=== PATIENT | female | born 1960 | race Caucasian/White ===

== ENCOUNTER 2023-02-03 15:53 | Observation (INO) | payer OTHER, SELFPAY ==
[2023-02-03] VITALS (25 sets, daily range): BP systolic 137–176; BP diastolic 68–72; PULSE 49–80; RESP 10–61; TEMP 36.7–36.9; O2SAT 92–99; BMI 35.4; BMI 36.3
--- NOTE | 2023-02-03 15:56 | ECG_ITS ---
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
--- NOTE | 2023-02-03 15:56 | CT_ITS ---
The [address] [address] Patient Name: KATHERINE GUIDRY MRN: [id number] date: 1960 Sex: F Assigned Patient Location: ER Current Patient Location: ER Accession/Order Number: [id number] Exam Date: 02/03/2023 15:55 Report Date: 02/03/2023 16:18 At the request of: KARY HAMILTON Procedure: CT stroke head/brain wo con EXAM: CT stroke head/brain wo con HISTORY: ams COMPARISON: None. TECHNIQUE: Axial CT scans through the head were obtained without IV contrast administration. Dose reduction techniques were achieved by using: automated exposure control and/or adjustment of mA and /or kV according to patient size and/or use of iterative reconstruction technique. FINDINGS: There is no evidence of acute intracranial hemorrhage or abnormal extra-axial fluid collection. No mass effect or midline shift is seen. There is no evidence of large acute territorial infarction. There is no hydrocephalus. To the limit of CT, the posterior fossa appears unremarkable. No definite acute fracture is identified. Soft tissues are unremarkable. The visualized orbits show no abnormal mass. The visualized paranasal sinuses show no air-fluid level. Mastoid air cells are clear. CT/CT stroke head/brain wo con IMPRESSION: No CT evidence of acute intracranial abnormality. If there is sufficient clinical concern for acute brain parenchymal pathology, consider MRI for further evaluation. Electronically authenticated by: GARY UNLU Date: 02/03/2023 16:18
[2023-02-03 16:15] LABS: Basophils Percent Auto 0.2 % (0.2-2.0); Eosinophils Absolute Auto 0.2 10^3/uL (0.0-0.7); Eosinophils Percent Auto 2.4 % (0.9-7.0); Hemoglobin 13.8 g/dL (12.0-16.0); Immature Granulocytes Abs Auto 0.04 10^3/uL (0.00-0.03); Immature Granulocytes Pct Auto 0.5 % (0.0-0.5); Lymphocytes Absolute Auto 3.2 10^3/uL (1.2-3.8); Mean Corpuscular HGB Conc 32.9 g/dL (29.9-35.2); Mean Corpuscular Hemoglobin 30.9 pg (26.7-34.0); Mean Platelet Volume 9.2 fL (9.5-13.5); Monocytes Absolute Auto 0.7 10^3/uL (0.3-0.8); Monocytes Percent Auto 8.1 % (1.7-12.0); Neutrophils Absolute Auto 3.9 10^3/uL (1.4-6.5); Neutrophils Percent Auto 48.8 % (43.0-75.0); Platelet Count 198 10^3/uL (150-450); Red Blood Count 4.47 10^6/uL (4.20-5.40); Red Cell Distribution Width 14.3 % (11.0-15.0)
--- NOTE | 2023-02-03 16:18 | XR_ITS ---
The [address] [address] Patient Name: KATHERINE GUIDRY MRN: [id number] date: 1960 Sex: F Assigned Patient Location: ER Current Patient Location: ER Accession/Order Number: [id number] Exam Date: 02/03/2023 16:50 Report Date: 02/03/2023 17:05 At the request of: KARY HAMILTON Procedure: XR chest 1V EXAMINATION: XR chest 1V HISTORY: Shortness of breath COMPARISON: Portable chest 09/19/2021 TECHNIQUE: Portable chest FINDINGS: The lung parenchyma is free of consolidation or infiltrate. No pneumothorax or pleural effusion. The cardiac, mediastinal and hilar contours are normal. The visualized osseous structures exhibit no gross abnormality. XR/XR chest 1V IMPRESSION: No acute cardiopulmonary abnormality. Electronically authenticated by: CINDY ORTEGA Date: 02/03/2023 17:05
--- NOTE | 2023-02-03 16:23 | ED_ITS ---
HPI - General Adult General Chief complaint: Altered Mental Status Stated complaint: Extreme Weakness/CVA Time Seen by Provider: 02/03/23 15:56 Source: patient Mode of arrival: ambulance History of Present Illness HPI narrative: The patient is coming to us by the EMS after she had an episode of being unconscious for few seconds according to the family members at the call the EMS right away but by the time the EMS arrived the patient is back to being awake and her pulse ox was in the upper 70s, the patient admits of being sick for the last few days having cough difficulty breathing and wheezing. Also productive cough with no chest pain there is some chest tightness no nausea no vomiting no abdominal pain She have her sister also with similar symptoms Related Data Home Medications Medication Instructions Recorded Confirmed amlodipine 5 mg tablet 10 mg PO DAILY 02/03/23 02/03/23 atorvastatin 20 mg tablet 20 mg PO DAILY 02/03/23 02/03/23 potassium chloride 20 mEq 20 meq PO DAILY 02/03/23 02/03/23 tablet,extended release(part/cryst) sertraline 50 mg tablet 50 mg PO DAILY 02/03/23 02/03/23 Allergies Allergy/AdvReac Type Severity Reaction Status Date / Time No Known Drug Allergies Allergy Verified 02/03/23 16:01 Review of Systems ROS Status of ROS 10 or more systems reviewed and unremarkable except as noted in history and below Exam Narrative Exam Narrative: Nurses notes and vital signs reviewed and patient is not hypoxic. General: Well-appearing and in no apparent distress. Skin: Warm, dry, no pallor noted. No rash. Head: Normocephalic, atraumatic. Neck: Supple, non-tender. Eye: Pupils are equal, round and EOMI. No scleral icterus. Ears, Nose, Mouth, and Throat: TM are clear, no nasal mucosal hypertrophy. Oral mucosa is moist, no posterior oropharynx erythema, uvula is mid-line Cardiovascular: Regular Rate and Rhythm without murmur, gallop or rub. Respiratory: No accessory muscle use or respiratory distress. Lungs are the patient have bilateral expiratory lung wheezes Chest Wall: no tenderness Back: No midline thoracic or lumbar vertebral tenderness. No CVA tenderness Musculoskeletal: normal ROM, no calf or popliteal tenderness, no lower extremity edema/swelling GI: Abdomen is soft, non-distended. Normal bowel sounds. No masses appreciated. No tenderness to palpation. No rebound, guarding, or rigidity noted. Neurological: A&O x4. No cranial nerve dysfunction observed. No truncal ataxia. Moves all extremities. Sensation intact. Psychiatric: Cooperative and interactive. Normal mood and affect. Constitutional Vital Signs, click to edit/add: Last Vital Signs Temp 98.1 F 02/03/23 16:01 Pulse 49 L 02/03/23 16:32 Resp 12 02/03/23 16:32 BP 176/68 H 02/03/23 16:01 Pulse Ox 97 02/03/23 16:32 O2 Del Method Nasal Cannula 02/03/23 16:32 O2 Flow Rate 2 02/03/23 16:32 Course Vital Signs Vital signs: Vital Signs Temperature 98.1 F 02/03/23 16:01 Pulse Rate 64 02/03/23 16:01 Respiratory Rate 18 02/03/23 16:01 Blood Pressure 176/68 H 02/03/23 16:01 Pulse Oximetry 98 02/03/23 16:01 Oxygen Delivery Method Nasal Cannula 02/03/23 16:01 Oxygen Delivery Flow Rate 2 02/03/23 16:01 Temperature 98.1 F 02/03/23 16:01 Pulse Rate 49 L 02/03/23 16:32 Respiratory Rate 12 02/03/23 16:32 Blood Pressure 176/68 H 02/03/23 16:01 Pulse Oximetry 97 02/03/23 16:32 Oxygen Delivery Method Nasal Cannula 02/03/23 16:32 Oxygen Delivery Flow Rate 2 02/03/23 16:32 Medical Decision Making [facility] Narrative Medical decision making narrative: The patient EKG showing sinus rhythm with a heart rate of [address] elevation or depression The patient CT head showed no acute pathology her ABGs confirm the diagnosis of COPD exacerbation with CO2 retention She is not in any respiratory distress at the moment she was provided with breathing treatment as well as Solu-Medrol The patient chest x-ray showed no acute pathology her CBC as well was within normal chemistry showing elevated bicarb which could be secondary to CO2 retention Right now the patient will be admitted for further management of her COPD exacerbation The patient mentioned that she smokes a pack of cigarette daily although initially she mentioned that she quit smoking The patient was now be admitted for further evaluation for COPD exacerbation and further observation as well The patient case was discussed with Dr. Lozano and he will admit the patient The patient daughter present at the bedside she mentioned that the patient was sitting and they both were sick for the last few days and she noted that her face turned mckeon with the patient became not responding to her when she is talking to her for few seconds and she is not sure but she might have had some facial drooping although she thinks it was the in both side a certain point Lab Data Labs: Lab Results 02/03/23 02/03/23 Range/Units 16:05 16:39 WBC 8.0 (4.0-11.0) 10^3/uL RBC 4.47 (4.20-5.40) 10^6/uL Hgb 13.8 (12.0-16.0) g/dL Hct 42.0 (36.0-48.0) % MCV 94.0 (81.0-99.0) fL MCH 30.9 (26.7-34.0) pg MCHC 32.9 (29.9-35.2) g/dL RDW 14.3 (11.0-15.0) % Plt Count 198 (150-450) 10^3/uL MPV 9.2 L (9.5-13.5) fL Neut % (Auto) 48.8 (43.0-75.0) % Lymph % (Auto) 40.0 (20.5-60.0) % Graves % (Auto) 8.1 (1.7-12.0) % Eos % (Auto) 2.4 (0.9-7.0) % Baso % (Auto) 0.2 (0.2-2.0) % Neut # (Auto) 3.9 (1.4-6.5) 10^3/uL Lymph # (Auto) 3.2 (1.2-3.8) 10^3/uL Graves # (Auto) 0.7 (0.3-0.8) 10^3/uL Eos # (Auto) 0.2 (0.0-0.7) 10^3/uL Baso # (Auto) 0.0 (0.0-0.1) 10^3/uL Abs Immat Gran (auto) 0.04 H (0.00-0.03) 10^3/uL Imm/Tot Granulo (auto) 0.5 (0.0-0.5) % PT 9.6 (9.0-11.6) sec INR <0.93 Puncture Site R radial ABG pH 7.331 L (7.350-7.450) ABG pCO2 59.6 H* (35.0-45.0) mmHg ABG pO2 64.8 L (80.0-100.0) mmHg ABG HCO3 31.5 H (22.0-26.0) mmol/L ABG O2 Saturation 94.0 % ABG Base Excess 5.5 H (-2.0-2.0) mmol/L Edgar Test Positive (POSITIVE) O2 Liters/Min 2 Sodium 141 (136-145) mmol/L Potassium 3.9 (3.5-5.1) mmol/L Chloride 103 (98-107) mmol/L Carbon Dioxide 33.2 H (21.0-32.0) mmol/L Anion Gap 8.7 BUN 10.0 (7.0-18.0) mg/dL Creatinine 0.75 (0.55-1.02) mg/dL Est GFR ( Amer) >60 (>=60) Est GFR (Non-Af Amer) >60 (>=60) BUN/Creatinine Ratio 13.3 Glucose 115 H (74-106) mg/dL Calcium 8.5 (8.5-10.1) mg/dL Total Bilirubin 0.4 (0.2-1.0) mg/dL AST 16 (15-37) U/L ALT 16 (14-59) U/L Alkaline Phosphatase 96 (46-116) U/L Troponin I High Sens 10.5 (4.0-51.3) pg/mL Total Protein 7.8 (6.4-8.2) g/dL Albumin 3.8 (3.4-5.0) g/dL Globulin 4.0 g/dL Albumin/Globulin Ratio 0.9 Ethanol Quant <3 mg/dL SARS-CoV-2 (PCR) Negative (NEGATIVE) Discharge Plan Discharge Chief Complaint: Altered Mental Status Clinical Impression: Respiratory failure with hypercapnia, Syncope, Acute exacerbation of chronic obstructive pulmonary disease Patient Disposition: Admitted As Inpatient Time of Disposition Decision: 17:24 Condition: Good
[2023-02-03 16:26] LABS: Ethanol <3 mg/dL
[2023-02-03] MEDS: IPRATROPIUM/ALBUTEROL SULFATE 3 ML AMPUL.NEB IH ×3 (16:31→23:20)
[2023-02-03 16:33] LABS: Alanine Aminotransferase 16 U/L (14-59); Albumin Globulin Ratio 0.9; Albumin Level 3.8 g/dL (3.4-5.0); Alkaline Phosphatase 96 U/L (46-116); Anion Gap 8.7; Aspartate Amino Transferase 16 U/L (15-37); BUN Creatinine Ratio 13.3; Bilirubin Total 0.4 mg/dL (0.2-1.0); Calcium 8.5 mg/dL (8.5-10.1); Carbon Dioxide 33.2 mmol/L (21.0-32.0); Chloride 103 mmol/L (98-107); Estimated GFR (African America >60 (>=60); Estimated GFR (Non-African Ame >60 (>=60); Glucose 115 mg/dL (74-106); Potassium 3.9 mmol/L (3.5-5.1); Prothrombin Time 9.6 sec (9.0-11.6); Sodium 141 mmol/L (136-145); Total Protein 7.8 g/dL (6.4-8.2); Troponin I High Sensitivity 10.5 pg/mL (4.0-51.3)
[2023-02-03 16:34] LABS: INR <0.93
[2023-02-03 16:42] LABS: SARS-CoV-2 Ag NEGATIVE (NEGATIVE)
[2023-02-03 16:48] LABS: pH ABG 7.331 (7.350-7.450)
[2023-02-03 16:49] LABS: ABG PCO2 59.6 mmHg (35.0-45.0); Allen Test POSITIVE (POSITIVE); Base Excess ABG 5.5 mmol/L (-2.0-2.0); HCO3 ABG 31.5 mmol/L (22.0-26.0); Liters per Minute 2; O2 Mode NC; PO2 ABG 64.8 mmHg (80.0-100.0); Puncture Site R RADIAL
[2023-02-03] MEDS: METHYLPREDNISOLONE SOD SUCC PF 125 MG/2 ML VIAL IVP (16:50)
--- NOTE | 2023-02-03 17:19 | CT_ITS ---
[address] [address] Patient Name: KATHERINE GUIDRY MRN: [id number] date: 1960 Sex: F Assigned Patient Location: MS Current Patient Location: Accession/Order Number: [id number] Exam Date: 02/03/2023 17:48 Report Date: 02/03/2023 19:29 At the request of: SHAIKH MC Procedure: CT angio chest EXAMINATION: CT angio chest, 02/03/2023 5:48 PM EDT HISTORY: sob COMPARISON: None. TECHNIQUE: CT angiography of the chest was performed with IV contrast. MIP (maximum intensity projection) images or 3D post processing was performed. CT dose reduction technique was used, including Automated Exposure Control. FINDINGS: VASCULATURE/PULMONARY ARTERIES: There is satisfactory opacification of the pulmonary arterial system. There is no evidence of pulmonary embolism. The main pulmonary artery is normal in diameter. The aorta and great vessels appear normal. HEART/PERICARDIUM: Mild cardiomegaly. Stent within the circumflex coronary artery. MEDIASTINAL/HILAR LYMPH NODES: Mild mediastinal lymphadenopathy including for example a right paratracheal lymph node measuring 1.2 x 1.1 cm. There is also an enlarged right hilar lymph node measuring 1.7 cm. ESOPHAGUS: Normal as visualized. PLEURAL CAVITY: No pleural effusion or pneumothorax. LUNGS/AIRWAYS: Mild central bronchial wall thickening suggestive of bronchitis. There is mild diffuse mosaic attenuation throughout the lungs. The lungs are otherwise clear. CHEST WALL/AXILLA/LOWER NECK: Normal. VISUALIZED UPPER ABDOMEN: Mild splenomegaly with the spleen measuring 15 cm AP. BONES: Mild degenerative changes of thoracic spine. No acute osseous abnormality. CT/CT angio chest IMPRESSION: 1. No evidence of pulmonary embolism. 2. Mild bronchial wall thickening suggestive of bronchitis and mosaic attenuation suggestive of small airways disease. 3. Mild mediastinal and right hilar lymphadenopathy which may be reactive in nature however recommend a followup chest CT with contrast in 3 months. 4. Mild cardiomegaly. 5. Splenomegaly. Electronically authenticated by: JOHANN RICHARDS Date: 02/03/2023 19:29
[2023-02-03] MEDS: ENOXAPARIN SODIUM 40 MG/0.4 ML SYRINGE SUBQ (19:22)
[2023-02-03] MEDS: AZITHROMYCIN 250 MG TABLET 500 MG PO (19:22)
[2023-02-03] MEDS: NICOTINE 21 MG PATCH TD (19:22)
[2023-02-03] MEDS: AMLODIPINE 10 MG TABLET 1 EACH PO (21:01)
[2023-02-03] MEDS: POTASSIUM CHLORIDE 20 MEQ TABLET 20 EACH PO (21:02)
[2023-02-03] MEDS: SERTRALINE HCL 100 MG TABLET PO (21:03)
[2023-02-03] MEDS: ATORVASTATIN CALCIUM 20 MG TABLET PO (21:03)
[2023-02-03 22:03] LABS: Bilirubin Urine NEGATIVE (NEGATIVE); Blood Urine NEGATIVE (NEGATIVE); Clarity Urine CLEAR (CLEAR); Color Urine YELLOW (YELLOW); Glucose Urine UA 250 mg/dL (NEGATIVE); Ketones Urine NEGATIVE (NEGATIVE); Leukocyte Esterase Urine NEGATIVE (NEGATIVE); Nitrite Urine NEGATIVE (NEGATIVE); Protein Urine NEGATIVE (NEG/TRACE); Urine Microscopic Indicated NO; Urobilinogen Urine 0.2 EU/dL (0.2-1.0)
[2023-02-04] VITALS (10 sets, daily range): BP systolic 133; BP diastolic 67; PULSE 74–101; RESP 16–20; TEMP 36.8; O2SAT 89–96; BMI 36.3
[2023-02-04] MEDS: IPRATROPIUM/ALBUTEROL SULFATE 3 ML AMPUL.NEB IH ×3 (03:40→11:43)
[2023-02-04 05:03] LABS: Basophils Percent Auto 0.2 % (0.2-2.0); Hematocrit 42.8 % (36.0-48.0); Hemoglobin 13.5 g/dL (12.0-16.0); Immature Granulocytes Abs Auto 0.05 10^3/uL (0.00-0.03); Immature Granulocytes Pct Auto 0.9 % (0.0-0.5); Lymphocytes Absolute Auto 0.8 10^3/uL (1.2-3.8); Lymphocytes Percent Auto 13.3 % (20.5-60.0); Mean Corpuscular HGB Conc 31.5 g/dL (29.9-35.2); Mean Corpuscular Hemoglobin 30.5 pg (26.7-34.0); Mean Corpuscular Volume 96.6 fL (81.0-99.0); Mean Platelet Volume 9.7 fL (9.5-13.5); Monocytes Percent Auto 0.7 % (1.7-12.0); Neutrophils Percent Auto 84.9 % (43.0-75.0); Platelet Count 210 10^3/uL (150-450); Red Blood Count 4.43 10^6/uL (4.20-5.40); Red Cell Distribution Width 14.2 % (11.0-15.0); White Blood Count 5.9 10^3/uL (4.0-11.0)
[2023-02-04 05:18] LABS: Alanine Aminotransferase 16 U/L (14-59); Albumin Globulin Ratio 0.9; Albumin Level 3.6 g/dL (3.4-5.0); Alkaline Phosphatase 97 U/L (46-116); Anion Gap 16.2; Aspartate Amino Transferase 11 U/L (15-37); BUN Creatinine Ratio 12.9; Bilirubin Total 0.2 mg/dL (0.2-1.0); Calcium 8.8 mg/dL (8.5-10.1); Carbon Dioxide 25.1 mmol/L (21.0-32.0); Chloride 102 mmol/L (98-107); Estimated GFR (African America >60 (>=60); Estimated GFR (Non-African Ame 56 (>=60); Globulin 4.2 g/dL; Glucose 361 mg/dL (74-106); Potassium 4.3 mmol/L (3.5-5.1); Sodium 139 mmol/L (136-145); Total Protein 7.8 g/dL (6.4-8.2)
--- NOTE | 2023-02-04 11:16 | PC.NURSE ---
patients iv and tele removed for d/c. patient up dressing per self.
--- NOTE | 2023-02-04 11:39 | CM.NOTE ---
Rounds made with sandoval Byrd to discharge to home today. No discharge needs identified.
--- NOTE | 2023-02-04 12:24 | PM.HP ---
H&P: HPI History of Present Illness Chief complaint: Syncope Narrative: 62 y/o female to ER after syncopal episode. C/o URI symptoms for about 1 week. Frequent cough and increased SOB. Severe congestion and fatigue. Family witnessed syncope for few seconds. EMS called and patient had hypoxia with SpO2 in upper 70s on room air. Placed on O2 and brought to ER. Reports sister with similar URI symptoms. Afebrile and normal WBC. ABG showed high CO2 59.6 and low pO2 64.8 on 2 LPM. CTA negative and admitted. Started antibiotics, steroids, and breathing treatments. Much improved this am. Minimal SOB and cough improved. Able to wean off oxygen and maintaining normal SpO2 on room air. Review of Systems ROS Constitutional Denies: fever, chills or fatigue Cardiovascular Denies: chest pain, palpitations or edema Respiratory Reports: shortness of breath, cough and wheezing Gastrointestinal Denies: abdominal pain, nausea, vomiting or diarrhea Genitourinary Denies: painful urination [facility] Medical History (Updated 02/04/23 @ 12:29 by Chele Brunson MD) Surgical History (Updated 02/03/23 @ 21:46 by Neha Russell RN) Family History (Updated 02/03/23 @ 21:49 by Neha Russell RN) Mother Family history of CHF (congestive heart failure) Family history of COPD (chronic obstructive pulmonary disease) Family history of diabetes mellitus Family history of hypertension Family history of myocardial infarction Family history of stroke Father Family history of CHF (congestive heart failure) Family history of diabetes mellitus Family history of hypertension Family history of myocardial infarction Family history of stroke Granddaughter No problems noted. Son No problems noted. 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 Known occupational exposures/hazards: No Highest level of school completed/degree received: GED or equivalent Are you now , , , , never or living with a partner: In a typical week, how many times do you talk on the telephone with family, friends, or neighbors: twice per week How often do you get together with friends or relatives: 3 or more times per week How often do you attend mu-ism or druze services: 1-3 times per year Do you belong to any clubs or organizations such as mu-ism groups unions, fraternal or athletic groups, or school groups: no Total score: 1 Score interpretation: A score of less than or equal to 1 indicates the most socially isolated. Little interest or pleasure in doing things: several days Feeling down, depressed, or hopeless: several days Feel stressed/tense/nervous/anxious/difficulty sleeping: to some extent Life stressors: recent of family or friend Life stressor details: of son Gender Identity: female Meds Home Medications and Allergies Home Medications Medication Instructions Recorded Confirmed Type amlodipine 5 mg tablet 10 mg PO BEDTIME 02/03/23 02/03/23 History atorvastatin 20 mg tablet 20 mg PO BEDTIME 02/03/23 02/03/23 History hydroxyzine pamoate 25 mg capsule 25 mg PO BID PRN anxiety 02/03/23 02/03/23 History (Vistaril) potassium chloride 20 mEq 20 meq PO BEDTIME 02/03/23 02/03/23 History tablet,extended release(part/cryst) sertraline 100 mg tablet (Zoloft) 100 mg PO BEDTIME 02/03/23 02/03/23 History albuterol sulfate 90 mcg/actuation 2 inh inhalation Q4H PRN shortness 02/04/23 Rx aerosol inhaler of breath or wheezing #8.5 grams azithromycin 250 mg tablet 250 mg PO DAILY 4 days #4 tabs 02/04/23 Rx (Zithromax) prednisone 50 mg tablet 50 mg PO DAILY 5 days #5 tabs 02/04/23 Rx Allergies Allergy/AdvReac Type Severity Reaction Status Date / Time No Known Drug Allergies Allergy Verified 02/03/23 16:01 Exam Constitutional Vital Signs, click to edit/add: Last Vital Signs Temp 98.3 F 02/04/23 05:22 Pulse 79 02/04/23 11:44 Resp 16 02/04/23 11:44 BP 133/67 02/04/23 05:22 Pulse Ox 96 02/04/23 11:44 O2 Del Method Room Air 02/04/23 11:44 O2 Flow Rate 1 02/04/23 07:20 Documenting provider has reviewed patient's vital signs: yes Common normals: no apparent distress, oriented x3 and alert HENMT Common normals: normocephalic Eye Common normals: PERRL and EOMs intact bilaterally Respiratory Auscultation: wheezes and diminished lung sounds Cardio Common normals: regular rate and regular rhythm; gallops detected, murmurs detected and rub detected GI Common normals: Normal to inspection, nondistended, normoactive bowel sounds present and non-tender Extremity Common normals: no pedal edema Results Labs Labs: Short CBC 02/03/23 02/04/23 Range/Units 16:05 04:30 WBC 8.0 5.9 (4.0-11.0) 10^3/uL Hgb 13.8 13.5 (12.0-16.0) g/dL Hct 42.0 42.8 (36.0-48.0) % Plt Count 198 210 (150-450) 10^3/uL BMP 02/03/23 02/04/23 16:05 04:30 Sodium 141 139 Potassium 3.9 4.3 Chloride 103 102 Carbon Dioxide 33.2 H 25.1 BUN 10.0 13.0 Creatinine 0.75 1.01 Glucose 115 H 361 H Calcium 8.5 8.8 Liver Function 02/03/23 02/04/23 Range/Units 16:05 04:30 Total Bilirubin 0.4 0.2 (0.2-1.0) mg/dL AST 16 11 L (15-37) U/L ALT 16 16 (14-59) U/L Alkaline Phosphatase 96 97 (46-116) U/L Albumin 3.8 3.6 (3.4-5.0) g/dL Urine 02/03/23 Range/Units 21:42 Urine Color Yellow (YELLOW) Urine Clarity Clear (CLEAR) Urine pH 5.0 (5.0-9.0) Ur Specific Mcguffey 1.020 (1.005-1.025) Urine Protein Negative (NEG/TRACE) mg/dL Urine Glucose (UA) 250 A (NEGATIVE) mg/dL ABG ABG results: 02/03/23 16:39 ABG pH 7.331 L ABG pCO2 59.6 H* ABG pO2 64.8 L ABG HCO3 31.5 H ABG O2 Saturation 94.0 ABG Base Excess 5.5 H Attestation: I have reviewed the pertinent ABG results. Imaging CT scan - chest: Attestation: I have reviewed the pertinent imaging results. Assessment and Plan Assessment and Plan (1) Acute bronchitis: (2) Acute respiratory failure with hypoxia: (3) Acute hypercapnic respiratory failure: (4) Syncope: (5) Benign essential hypertension: (6) CAD (coronary artery disease): Plan Initially with hypoxia but quickly improved with treatment. Normal SpO2 on room air and ambulating well. Discharge home. Will take prednisone and zithromax. Use albuterol PRN. Resume home medication as directed. F/u with PCP in 2-4 weeks.
[2023-02-04 15:34] LABS: SARS-CoV-2 NAA NOT DETECTED (NOT DETECTE)
--- NOTE | 2023-02-06 11:57 | CM.DCFOLLOWU ---
Person spoke with: patient How are you feeling? well How is your pain? no pain Did you understand your discharge instructions? yes Do you have any questions about your discharge instructions? no Were you given any prescriptions at discharge? yes Were you able to get your prescriptions filled? yes Do you understand how to take your medications as ordered? yes Do you have any questions about your follow up appointment and do you plan to keep your follow up appointment? no questions, will call to schedule follow up Is there anything else that you would like to discuss? no Questions/Comments/Concerns/Other:
== END 2023-02-04 12:20 | disposition home or self-care (01) ==
LOC: ER 17:52 → MS 02-04 08:07
PROVIDERS: Internal Medicine; Admitting Provider Family Medicine; Emergency Provider Emergency Medicine; PCP Nurse Practitioner Primary Care; Visit Provider Family Medicine
DX: J20.9 Acute bronchitis, unspecified (principal); J96.02 Acute respiratory failure with hypercapnia; J96.01 Acute respiratory failure with hypoxia; R55 Syncope and collapse; I10 Essential (primary) hypertension; I25.10 Atherosclerotic heart disease of native coronary artery without angina pectoris; F17.210 Nicotine dependence, cigarettes, uncomplicated; Z79.899 Other long term (current) drug therapy; Z20.822 Contact with and (suspected) exposure to COVID-19
CPT/HCPCS: 36415; 36600; 70450; 71045; 71275; 80053; 80320; 81003; 82805; 84484; 85025; 85610; 87635; 93005; 94618; 94640; 94761; 96372; 96374; 99285; G0378; J2930; Q9967